=== PATIENT | female | born 1955 | race Asian ===

== ENCOUNTER 2021-01-27 08:29 | Day surgery (SDC) | payer BC ==
[~2021-01-27] VITALS: Ht 162.6 cm; Wt 63.8 kg
[2021-01-27] VITALS (17 sets, daily range): BP systolic 116–168; BP diastolic 69–88; PULSE 66–87; TEMP 97.4–98.4
[2021-01-27] MEDS ORDERED: TOPROL XL 50MG50 MG PO (09:23)
[2021-01-27] MEDS ORDERED: PRAVACHOL 20MG20 MG PO (09:24)
[2021-01-27] MEDS ORDERED: CENTRUM SILVER1 TA2 PO (09:24)
[2021-01-27] MEDS ORDERED: SYNTHROID0.1 MG/TAB PO (09:25)
[2021-01-27] MEDS ORDERED: ASPIRIN E.C. 8181 MG PO (09:25)
[2021-01-27] MEDS ORDERED: EPA FISH OIL1 SGL PO (09:26)
[2021-01-27 09:52] LABS: CALCIUM 9.4 mg/dL (8.4-10.2); CREATININE, serum 0.5 (0.52-1.25); HEMATOCRIT 40.7 % (37.0-47.0); HEMOGLOBIN 13.7 g/dl (12.5-16.0); MEAN CELL VOLUME 91 fl (80.0-100.0); MEAN CORPUSCULAR HEMOGLOBIN 31 pg (27.0-31.0); MEAN CORPUSCULAR HGB CONC 34 g/dl (33.0-37.0); MEAN PLATELET VOLUME 9.6 fl (7.4-10.4); PLATELET COUNT 177 K/mm3 (130-400); POTASSIUM 4.1 mmol/L (3.4-5.0); RED BLOOD COUNT 4.49 M/mm3 (4.10-5.30); REDCELL DISTRIBUTION WIDTH-CV 12.4 % (11.5-14.5)
[2021-01-27 10:05] LABS: PROTHROMBIN TIME 11.3 SECONDS (9.7-12.8)
[2021-01-27 10:06] LABS: PARTIAL THROMBOPLASTIN TIME 25.6 SECONDS (26.0-37.0)
--- NOTE | 2021-01-27 10:44 | NUR ---
SEE MERGE FOR ALL MEDICATION ADMINISTRATION TIMES, INTRA AND POST SEDATION ASSESSMENTS
--- NOTE | 2021-01-27 15:00 | NUR ---
Patient alert and oriented, answers questions appropriately. See assessment. TR band to right wrist, no bleeding or bruising noted, no c/o numbness or tingling. TR band reviewed with patient and daughter. Visitor policy reviewed with patient and daughter. No c/o at this time.
--- NOTE | 2021-01-27 21:36 | NUR ---
Patient laying in bed upon enter the room. Shift assessment completed. Patient pleasant, A/Ox4. Patient denies any pain or discomfort. Right radial cardiac cath site dressing C/D/I. Patient denies pain, numbness or tingling to right radial cardiac cath site. Patient tolerating dinner well. No N/V noted. All scheduled meds given per NOV. Call light within reach. Patient denies any needs at this time.
[2021-01-28] VITALS: BP 128/73; PULSE 71; TEMP 98.4
[2021-01-28 04:14] VITALS: BP 133/82; PULSE 71; TEMP 98.4
--- NOTE | 2021-01-28 05:49 | NUR ---
Patient slept well throughout the night. No c/o pain or discomfort. No acute distress noted. Call light within reach.
--- NOTE | 2021-01-28 08:00 | NUR ---
Patient sitting up in bed watching TV. Patient A&Ox4. VSS. IV CDI. No reported pain or discomfort. Right radial sit CDI. Patient is hoping to go home today. No further needs expressed from the patient. Call light within reach
[2021-01-28 08:09] VITALS: BP 125/68; PULSE 85; TEMP 98.6
[2021-01-28] MEDS ORDERED: BRILINTA90 MG PO (09:21)
[2021-01-28] MEDS ORDERED: LIPITOR20 MG PO (09:21)
--- NOTE | 2021-01-28 10:32 | NUR ---
Discharge paperwork reviwed with the patient and daughter. Patient verbalized an understanding to follow doctors orders. IV removed, tip intact, gauze and bandaid applied. Patient walked independently with nursing staff to ER entrance. No further needs expressed from the patient.
== END 2021-01-28 10:30 | disposition home or self-care (01) ==
LOC: COL.CAR 08:29 → MEDICAL 12:50 → COL.CAR 01-28 10:30
PROVIDERS: Internal Medicine Cardiovascular Disease
DX: I25.118 Atherosclerotic heart disease of native coronary artery with other forms of angina pectoris (principal); I10 Essential (primary) hypertension; E78.5 Hyperlipidemia, unspecified; M62.20 Nontraumatic ischemic infarction of muscle, unspecified site; U07.1 COVID-19; Z95.5 Presence of coronary angioplasty implant and graft; Z79.82 Long term (current) use of aspirin; Z79.890 Hormone replacement therapy; Z79.899 Other long term (current) drug therapy
CPT/HCPCS: OP; C1725; C1769; C1874; C1887; C9600; J1644; J2250; J3010; J7030; Q9967